=== PATIENT | male | born 1975 | race Caucasian/White ===

== ENCOUNTER 2018-03-12 06:59 | Inpatient (IN) | payer OTHER ==
[2018-03-12] MEDS ORDERED: Nitroglycerin 2% Ointment 1 INCH/1 GM Packet ONE (07:15)
[2018-03-12 07:18] LABS: #Eosinphils 0.1 thou/uL (0.0-0.7); #Lymphocytes 1.8 thou/uL (1.20-3.40); #Monocytes 0.4 thou/uL (0.11-0.59); #Neutrophils 2.7 thou/uL (1.40-6.50); %Basophils 0.6 % (0.0-1.0); %Lymphocytes 36.3 % (21.0-51.0); %Monocytes 7.3 % (0.0-10.0); %Neutrophils 53.9 % (42.0-75.0); Hemoglobin 16.4 g/dL (14.0-18.0); Mean Corpuscular HGB CONC 34.6 g/dL (32.0-36.0); Mean Corpuscular Hemoglobin 31.3 pg (27.0-31.0); Mean Corpuscular Volume 90.5 fL (78.0-98.0); Mean Platelet Volume 6.8 fL (7.4-10.4); Platelet Count 253 thou/uL (130-400); RBC Distribution Width 12.3 % (11.5-14.5); Red Blood Cell (RBC) Count 5.26 mill/uL (4.70-6.10)
[2018-03-12 07:34] LABS: INR-International Normal Ratio 0.9; Prothrombin Time 12.6 SEC (12.0-14.7)
[2018-03-12] MEDS ORDERED: fentaNYL Citrate/PF 2,000 MCG in Sodium Chloride 0.9% 60 ML IV SCH (07:35)
[2018-03-12] MEDS ORDERED: Midazolam HCl 2 mg/2 ml Vial ONE ×2 (07:35→07:43)
[2018-03-12 07:36] LABS: ALT (SGPT) 30 U/L (8-55); AST (SGOT) 24 U/L (5-34); Albumin 4.5 g/dL (3.5-5.0); Alkaline Phosphatase 85 U/L (40-150); Anion Gap 15 mmol/L (10-20); BUN (Urea Nitrogen) 14 mg/dL (8.9-20.6); Bilirubin, Total 0.7 mg/dL (0.2-1.2); CK (CPK) 95 U/L (30-200); Calc. Creatinine Clearance 0 mL/min (70-130); Calcium 9.3 mg/dL (7.8-10.44); Carbon Dioxide 21 mmol/L (22-29); Chloride 108 mmol/L (98-107); Estimated GFR-MDRD 75; Globulin 3.4 g/dL (2.4-3.5); Glucose 111 mg/dL (70-105); Lipase 17 U/L (8-78); Protein, Total 7.9 g/dL (6.0-8.3); Sodium 140 mmol/L (136-145)
[2018-03-12 07:39] LABS: CKMB 0.7 ng/mL (0-6.6); Troponin I Less than 0.010 ng/mL (< 0.028)
[2018-03-12] MEDS ORDERED: Fentanyl 100 MCG/2 ML VIAL ONE (07:47)
--- NOTE | 2018-03-12 07:58 | RAD ---
SUPINE AP CHEST: Indication: Assess intubation. Shortness of breath. Comparison: 03-12-18 performed at 6:11 a.m. FINDINGS/IMPRESSION: ET tube has been placed. The tip is just above the charles. There are now bilateral infiltrates which are seen in both mid and upper lungs. These have occurred s kim the exam performed at 6:11 a.m. suggesting the development of pulmonary edema since that study. POS: [facility]
[2018-03-12 08:09] LABS: Cardiac Risk 4.4 (Less than 4.5)
[2018-03-12] MEDS ORDERED: Heparin 10,000 UNITS/1 ML VIAL ONE (08:15)
[2018-03-12] MEDS ORDERED: Aggrastat 12.5 MG/250 ML 250 ML ONE (08:23)
--- NOTE | 2018-03-12 08:33 | RAD ---
CHEST 1 VIEW: INDICATION: Chest pain. COMPARISON: None. FINDINGS: Lungs are clear. Cardiomediastinal silhouette is within normal limits. No acute osseous abnormality is noted. IMPRESSION: No acute cardiopulmonary abnormality. POS: [facility]
[2018-03-12] MEDS ORDERED: Nitroglycerin 0.4 MG TAB (25 Tab Bottle) SL PRN (08:48)
[2018-03-12] MEDS ORDERED: Heparin 10,000 UNITS/ 10 ML VIAL ONE (09:00)
[2018-03-12] MEDS ORDERED: Sodium Chloride 0.9% 1,000 ML IV SCH (09:00)
[2018-03-12] MEDS ORDERED: Aggrastat 12.5 MG/250 ML 250 ML IVPB SCH (09:00)
[2018-03-12] MEDS ORDERED: Amiodarone In Dextrose 200 ML IVPB SCH (09:15)
[2018-03-12] MEDS ORDERED: Amiodarone HCl 450 MG, Admixture Fee 1 EACH in Dextrose 5% in Water 250 ML IVPB SCH (09:15)
[2018-03-12 09:42] VITALS: BMI 23.8
[2018-03-12 09:47] LABS: Actual Bicarbonate (HCO3a) 17.1 mEq/L (22-28); Base Excess (BEa) -6.1 mEq/L (-2.0 to +3.0); CO2 Tension 28.3 mmHg (35.0-45.0); Calcium, Ionized 1.03 mmol/L (1.12-1.30); Hemoglobin (Hb) 14.7 g/dL (14.0-18.0); O2 Tension (PaO2) 160.5 mmHg (80.0-100.0)
[2018-03-12] MEDS ORDERED: Propofol 1,000 MG/100 ML VIAL IV ONE (09:57)
[2018-03-12 10:13] LABS: ALV-art Gradient 167.755 (0-20); Puncture Site ALINE
[2018-03-12] MEDS ORDERED: Lorazepam 2 MG/ML VIAL ONE (10:29)
[2018-03-12] MEDS ORDERED: Iopamidol 370 76% 100 ML VIAL ONE (10:32)
[2018-03-12] MEDS ORDERED: Iopamidol 370 76% 50 ML VIAL FS ONE (10:32)
[2018-03-12] MEDS: TICAGRELOR 90 MG TABLET PO SCH ×2 (10:58→20:59)
--- NOTE | 2018-03-12 11:23 | PDOC.PULCN ---
Pulmonology Consult: HPI - Date of Consult Date: 03/12/18 Time: 11:00 - Consult Details Reason for Consult: STEMI, s/p PCI w/ ADIA, on ventilator Requesting Physician: Jeremi - History of Present Illness HPI: CHRISTOPHER KOWALSKI is a 42 year-old M w pmh of tobacco abuse and elevated BP w/O dx of HTN who presented by EMS for persistent CP. 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 An EKG was performed at that time and was reported to show ST depression with mild ST elevation in reciprocal leads. At this time he was taken via EMS to the ER and serial EKGs were performed en route. In the ER pt was given nitro paste and EKG was performed that showed STEMI. Shortly after arrival to the ER the pt developed a ventricular arrythmia ( v-fib arrest--> torsades) and was cardioverted 3 times and CPR was initiated for <1 min and pt was intubated. Ultimately, pt was taken to clinical lab assistant and found to have 60% occlusion of his LAD for which 1 ADIA was placed with good flow noted post intervention. He was transferred to ICU on ventilator. Pulmonology Consult: ROS - Review of Systems ROS unobtainable: due to endotracheal tube Cardiovascular: chest pain (per records) Pulmonology Consult: PMH Source: family Past Medical History: Elevated BP w/o dx of HTN - Family History Pertinent family history: Maternal grandfather [place] @ 42 and cardiac in early 50s - Social History Smoking Status: Other (2 cans smokeless tobacco daily) Alcohol Use: daily Drug Use History: none Living Situation: Pulmonology Consult: Meds - Medications MAR Reviewed: Yes Medications: Current Medications Aspirin (Aspirin Chewable) 81 mg PO DAILY [facility] Last Admin: 03/12/18 10:57 Dose: Not Given Atorvastatin Calcium (Lipitor) 20 mg PO HS [facility] Fentanyl Citrate 2,000 mcg/ (Sodium Chloride) 100 mls @ 0 mls/hr IV INF [facility]; Protocol Stop: 04/11/18 07:35 Thiamine HCl 100 mg/ Sodium (Chloride) 51 mls @ 100 mls/hr IVPB Q24HR [facility] Stop: 03/14/18 23:59 Last Admin: 03/12/18 10:56 Dose: 51 mls Tirofiban/Sodium Chloride (Aggrastat 12.5 Mg/250 Ml) 250 mls @ 0 mls/hr IVPB INF [facility]; Protocol Stop: 03/13/18 09:00 Sodium Chloride (Normal Saline 0.9%) 1,000 mls @ 125 mls/hr IV .Q8H [facility] Stop: 03/12/18 15:00 Last Admin: 03/12/18 10:57 Dose: 1,000 mls Amiodarone HCl 450 mg/Miscellaneous Medication 1 each/ Dextrose/Water 259 mls @ 0 mls/hr IVPB INF [facility]; Protocol Morphine Sulfate (Morphine) 2 mg SLOW IVP Q4H PRN PRN Reason: Moderate Pain (4-6) Nitroglycerin (Nitrostat) 0.4 mg SL Q5MIN PRN PRN Reason: Chest Pain Sodium Chloride (Flush - Normal Saline) 10 ml IVF Q12HR [facility] Last Admin: 03/12/18 10:57 Dose: 10 ml Sodium Chloride (Flush - Normal Saline) 10 ml IVF PRN PRN PRN Reason: Saline Flush Ticagrelor (Brilinta) 90 mg PO BID [facility] Last Admin: 03/12/18 10:58 Dose: Not Given - Allergies Allergies/Adverse Reactions: Allergies Allergy/AdvReac Type Severity Reaction Status Date / Time acetaminophen [From Vicodin] Allergy Hives Verified 03/12/18 11:25 hydrocodone [From Vicodin] Allergy Hives Verified 03/12/18 11:25 Penicillins Allergy Hives Verified 03/12/18 11:25 Pulmonology Consult: PE - Physical Exam Deviation from normal: Intubated, mildly agitated able to follow commands HEENT: moist MMs, sclera anicteric Deviation from normal: ET tube in place with BRB suctioned from source Neck: no nodes, no JVD Cardiovascular: RRR, no significant murmur, no rub Respiratory: rhonchi. negative: accessory muscle use, chest wall tenderness, decreased breath sounds, rales, respiratory distress, stridor, wheezes Focused Respiratory Location: rhonchi: Right, Left, Upper, Lower Gastrointestinal: soft, non-tender, no distention, positive bowel sounds Musculoskeletal: no edema, pulses present Neurological: non-focal, normal sensation, moves all 4 limbs Deviation from normal: agitated, seddation started during exam Skin: no rash, cap refill <2 seconds Pulmonology Consult: Results - Labs Result Diagrams: 03/12/18 07:10 03/12/18 07:10 - ABG Interpretation Attestation: I reviewed and interpreted this ABG. ABG Results: ABG pH 7.40 (7.35-7.45) 03/12/18 09:35 ABG pCO2 28.3 mmHg (35.0-45.0) L 03/12/18 09:35 ABG O2 Sat Calc/Amaya 99.3 % (94.0-98.0) H 03/12/18 09:35 ABG Base Excess -6.1 mEq/L (-2.0 to +3.0) L 03/12/18 09:35 Interpretation: normal - EKG Data Rate: normal - Radiology Interpretation Chest x-ray Status: image reviewed by me, report reviewed by me Pulmonology Consult: A/P - Problem (1) Cardiac arrest with ventricular fibrillation Current Visit: Yes Code(s): I46.9 - CARDIAC ARREST, CAUSE UNSPECIFIED; I49.01 - VENTRICULAR FIBRILLATION Status: Acute (2) STEMI (ST elevation myocardial infarction) Current Visit: Yes Status: Acute (3) Tobacco abuse Current Visit: Yes Code(s): Z72.0 - TOBACCO USE Status: Acute (4) Alcohol abuse Current Visit: Yes Code(s): F10.10 - ALCOHOL ABUSE, UNCOMPLICATED Status: Acute - Time Time: 50% of the time was spent in coordination of care (as documented) at patient's floor/unit and/or counseling patient. 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
--- NOTE | 2018-03-12 13:07 | HP ---
HISTORY: Stephen Ortiz is a 42-year-old white male who denies any previous chest discomfort. He was awake at 5:00 a.m. this morning and he started to have crushing central chest pressure without radiation. This was accompanied by diaphoresis when paramedics arrived, but no shortness of breath, nausea or vomiting. EKG initially showed ST segment elevation in lead 1 and 2 as well as V2 through V4 with reciprocal changes in other leads. He was given aspirin 324 mg and the pain resolved. He was brought to the emergency room. At the present time, he is pain free. PAST MEDICAL HISTORY: Denied any history of hypertension, diabetes, hypercholesterolemia, although in 10/2016 he had a cholesterol 200, triglycerides 66, HDL 55, LDL 132. One year prior to that his LDL was 84. MEDICATIONS: None. ALLERGIES: PENICILLIN. OPERATIONS: None. SOCIAL HISTORY: He does not smoke, but he does dip. He drinks a 6 pack a day at times, although he is very evasive about that. 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 FAMILY HISTORY: Negative for coronary artery disease, myocardial infarction. REVIEW OF SYSTEMS: Twelve point review of systems otherwise unremarkable. PHYSICAL EXAMINATION: VITAL SIGNS: Blood pressure 132/80, pulse of 90. HEENT: PERRL. NECK: Supple. CHEST: Clear. CARDIAC: S1 and S2 are normal, without any S3, S4 or murmurs. Carotid upstrokes normal, without bruits. ABDOMEN: Normal bowel sounds, without tenderness, organomegaly or masses. EXTREMITIES: Revealed no clubbing, cyanosis or edema. NEUROLOGIC: Grossly intact. SKIN: Warm and dry. LABORATORY: At the present time EKG was normal. The only blood work that has returned is a CBC which is unremarkable. Chest x-ray is unremarkable. IMPRESSION: 1. Acute coronary syndrome, aborted ST-segment elevation myocardial infarction. At the present time, he is pain free with normal EKG. 2. Snuff user. 3. ETOH use. PLAN: The situation was discussed with the patient. It was recommended he undergo catheterization. The risks were discussed including , myocardial infarction, dye reaction, vascular injury, CVA, transfusion, limb loss, renal damage, etc. Risk of intervention with PTCA and stent were discussed including , myocardial infarction, emergent CABG, restenosis, stent thrombosis, vessel perforation, etc. He had no history of gastrointestinal bleeding, CVA, or upcoming surgeries. Overall, it was recommended drug-eluting stent be placed if needed. During this dictation, the patient arrested, having gone into what was described as torsades, although I did not have any rhythm strips to evaluate. He was then shocked back to sinus rhythm. Amiodarone drip was given, after a bolus of 300 mg, then he will be taken to the concrete plant laborer. FELICITY
[2018-03-12 13:38] LABS: CKMB 2.2 ng/mL (0-6.6); Troponin I 0.261 ng/mL (< 0.028)
--- NOTE | 2018-03-12 18:11 | CCL ---
CARDIAC CATHETERIZATION REPORT: Date: 03/12/18 PROCEDURE: Left heart catheterization, selective coronary arteriography, stent placement in proximal LAD, and left ventriculography. INDICATION: Ventricular fibrillation x3 in the emergency room and aborted anterolateral STEMI. PROCEDURE IN DETAIL: The patient was brought to cardiac dairy laboratory technician, intubated, with IV fentanyl and amiodarone infusing. He had been intubated in the ER. The patient was prepped and draped. 1% lidocaine was infiltrated into the right femoral area. A 6- Angolan sheath was inserted. ACT was obtained and it was subtherapeutic, and an additional 5000 units of heparin was given. Later in the case, the ACT was over 300. A 6-Angolan Luke right 4 was inserted for right coronary arteriography. This was removed and a 6-Angolan Luke left 4 guide catheter was inserted for left coronary arteriography. Aggrastat bolus and drip were started. Brilinta could not be given through the NG because it was occluded and this will be dealt with as described later. A floppy choice wire was advanced into the distal LAD. Synergy 3.5 x 32 mm stent was positioned and deployed with excellent result. Final injections were obtained and the left 4 guide was removed. A 6-Angolan Luke angulated pigtail was inserted pressure obtained. Left ventriculogram was performed using 30 mL of contrast in a TOURE 30 degree projection. Pressure obtained and the pigtail was removed. Attention was then turned to the NG under fluoroscopy. This seemed to be coiled in the pharynx. This was pulled back and redirected several times and ultimately was inserted into the stomach. Brilinta 180 mg was then given. Sheath sutured in place and patient was transferred to the CCU in guarded condition. RESULTS: PRESSURES: Aorta 111/77, mean of 95 Left Ventricle 113/13 CORONARY ARTERIOGRAPHY: 1. The left main was normal. 2. The LAD had a 60-70% long proximal stenosis with GRISELDA 1-2 flow. 3. The circumflex had a 20% stenosis in the first obtuse marginal. 4. The right coronary was normal and very small. INTERVENTION RESULTS: The initial lesion was 60-70%. Decision was made to intervene in this area due to his changes consistent with anterolateral STEMI on EKG as well as ventricular fibrillation x3 in the emergency room. Initial lesion was 60-70%. Final lesion was 0%. LEFT VENTRICULOGRAM: There was moderate mid and distal anterior hypokinesis with ejection fraction of 40-45%. IMPRESSION: 1. One vessel coronary artery disease (LAD). 2. Successful drug-eluting stent placement in the proximal LAD. 3. Mild left ventricular dysfunction. MTDD
[2018-03-12] MEDS: Atorvastatin Calcium 40 MG TAB PO SCH (20:58)
[2018-03-12] MEDS ORDERED: Atorvastatin Calcium 20 MG TAB PO SCH (21:00)
[2018-03-12] MEDS: Morphine 2 MG/ML SYRINGE SLOW IVP PRN (21:05)
[2018-03-13] MEDS: Morphine 2 MG/ML SYRINGE SLOW IVP PRN ×3 (00:39→20:53)
[2018-03-13 03:53] LABS: %Basophils 0.1 % (0.0-1.0); %Eosinophils 0.7 % (0.0-10.0); %Lymphocytes 10.2 % (21.0-51.0); %Monocytes 6.1 % (0.0-10.0); Hemoglobin 11.9 g/dL (14.0-18.0); Mean Corpuscular Hemoglobin 31.3 pg (27.0-31.0); Mean Platelet Volume 6.8 fL (7.4-10.4); Platelet Count 231 thou/uL (130-400); RBC Distribution Width 12.3 % (11.5-14.5); Red Blood Cell (RBC) Count 3.81 mill/uL (4.70-6.10); White Blood Cell (WBC) Count 9.7 thou/uL (4.8-10.8)
[2018-03-13 03:54] LABS: #Eosinphils 0.1 thou/uL (0.0-0.7); #Monocytes 0.6 thou/uL (0.11-0.59)
[2018-03-13 04:17] LABS: ALT (SGPT) 25 U/L (8-55); AST (SGOT) 49 U/L (5-34); Albumin 3.6 g/dL (3.5-5.0); Alkaline Phosphatase 60 U/L (40-150); Anion Gap 9 mmol/L (10-20); BUN (Urea Nitrogen) 10 mg/dL (8.9-20.6); Bilirubin, Total 1.3 mg/dL (0.2-1.2); Calc. Creatinine Clearance 94 mL/min (70-130); Calcium 7.9 mg/dL (7.8-10.44); Carbon Dioxide 22 mmol/L (22-29); Chloride 109 mmol/L (98-107); Estimated GFR-MDRD Greater than 90; Globulin 2.4 g/dL (2.4-3.5); Glucose 120 mg/dL (70-105); Potassium 3.7 mmol/L (3.5-5.1); Sodium 136 mmol/L (136-145)
[2018-03-13] MEDS: TICAGRELOR 90 MG TABLET PO SCH ×2 (08:02→20:10)
[2018-03-13 08:10] LABS: CKMB 1.8 ng/mL (0-6.6); Troponin I 0.092 ng/mL (< 0.028)
--- NOTE | 2018-03-13 09:09 | RAD ---
PORTABLE AP CHEST: Date: 03/13/18 HISTORY: Extubation. Follow-up evaluation. COMPARISON: 03/12/18. FINDINGS: The endotracheal tube has been removed. There are interstitial and alveolar opacities seen within the suprahilar/perihilar regions bilaterally, in similar distribution to the prior exam, which may be re lated to pulmonary edema. Calcified granuloma is again present at the right lung base. No pleural eff usion is seen. The cardiac silhouette is within normal limits. There has been no other interval dickinson e. IMPRESSION: 1. Persistent bilateral interstitial and alveolar opacities within the perihilar/suprahilar location s, in a similar distribution to the prior study, which may be related to pulmonary edema, with mild i mprovement in aeration on the left. 2. Interval removal of the endotracheal tube. POS: [facility]
--- NOTE | 2018-03-13 13:45 | PRG ---
DATE OF SERVICE: 03/13/2018 SERVICE: Pulmonary Medicine. INTERVAL HISTORY: The patient is doing outstanding from a Respiratory standpoint. He denies any current chest pain, nausea, vomiting, fevers or chills outside of the rib discomfort he has from his chest compressions. He is tolerating p.o. There has been no interval change in his condition. He did not have any events overnight. Telemetry was unremarkable. PHYSICAL EXAMINATION: VITAL SIGNS: Afebrile, pulse 95, blood pressure 122/83, respirations 19, saturation 100% on room air. GENERAL: The patient is awake, alert, no apparent distress. LUNGS: Decent air entry. Crackles are present. No prolonged expiratory phase or wheezing is appreciated. HEART: Normal rate, regular. ABDOMEN: Soft, nontender, nondistended. Bowel sounds are positive. MUSCULOSKELETAL: No cyanosis or clubbing. There is no pitting edema in the bilateral lower extremities. NEUROLOGIC: Grossly nonfocal. LABORATORY DATA: WBC 9.7, hemoglobin 11.9, platelets 231,000. Basic metabolic profile and liver function studies are essentially unremarkable except for marginally elevated AST. Troponin is down trending to 0.92. IMAGING: Echocardiogram demonstrates an ejection fraction of 55-60%. There is mild mitral regurgitation present. Chest x-ray demonstrates bilateral interstitial and alveolar opacifications seen in perihilar/suprahilar region. Interval removal of endotracheal tube. ASSESSMENT: 1. Acute hypoxic respiratory failure, resolved. 2. Ventricular tachycardia arrest, status post 1 minute of CPR with return of good cardiac activity and good neurologic function. 3. Acute myocardial infarction, status post ADIA to the LAD. DISCUSSION AND PLAN: The patient is doing absolutely fantastic from Respiratory and Cardiovascular standpoint. It looks like there is no severe injury to the heart at this time. The troponin really did not increase dramatically. Furthermore, his left ventricular ejection fraction seems to be okay. As such, I will transition him out of the ICU to the telemetry unit. When he arrives on the floor, he will have no further requirements for Pulmonary or Critical Care opinion, and I will sign off. Arana catheter to be removed today. FELICITY
[2018-03-13] MEDS: Atorvastatin Calcium 40 MG TAB PO SCH (20:10)
[2018-03-14] MEDS: Morphine 2 MG/ML SYRINGE SLOW IVP PRN ×3 (01:15→20:39)
[2018-03-14] MEDS: TICAGRELOR 90 MG TABLET PO SCH ×2 (09:21→20:39)
[2018-03-14] MEDS: Atorvastatin Calcium 40 MG TAB PO SCH (20:39)
[2018-03-15] MEDS: Morphine 2 MG/ML SYRINGE SLOW IVP PRN (02:30)
[2018-03-15 07:45] VITALS: TEMP 98.9
[2018-03-15] MEDS: TICAGRELOR 90 MG TABLET PO SCH (08:37)
--- NOTE | 2018-03-15 12:52 | DIS ---
DISCHARGE DIAGNOSES: 1. Aborted anterolateral ST-segment elevation myocardial infarction with spontaneous resolution of S T segment elevation. 2. Hle-VB-rnufzgh elevation myocardial infarction with peak troponin of 0.261. 3. Ventricular fibrillation x3 in the emergency room. 4. Placement of drug-eluting stent in the proximal left anterior descending. 5. Hypercholesterolemia with LDL of 126. 6. Snuff user. 5. ETOH use. DISCHARGE MEDICATIONS: Aspirin 81 mg daily, Brilinta 90 mg b.i.d. for at least 1 year, atorvastatin 40 mg daily, metoprolol 25 ER daily, nitroglycerin 0.5 mg sublingually p.r.n. DISCHARGE DISPOSITION: The patient will return to light duty on 03/26/2018. He will return for foll owup on 04/09/2018 to reassess his status and hopefully return him to full duty. He also has a follo w up on 05/03/2018 with a lipid profile being performed. HOSPITAL COURSE: Mr. Ortiz denied any previous chest discomfort. On the day of admission, he was already awake at 5:00 a.m., began to have crushing substernal chest pressure. Paramedics were gigi james. He was given aspirin and by the time he arrived in the emergency room, the ST segment elevation i n 1, L, V2 through V4 had resolved and his EKG was normal and his pain had resolved. We discussed th at he needed to undergo cardiac catheterization. After that he then had 3 episodes of ventricular fi brillation in the emergency room, all successfully defibrillated. He was taken to the cardiac cath l ab after being intubated in the emergency room. This revealed a 60-70% proximal LAD lesion and 20% o btuse marginal lesion. The right coronary was small and normal. With his previous EKG changes as we ll as ventricular fibrillation x3, it was felt that the proximal LAD lesion needed to be stented. Sy nergy 3.5 x 32 mm stent was then positioned and deployed with excellent result. Later during the day of admission, he was weaned from the ventilator and extubated. At the time of d ischarge he was walking 450 feet in the chowdary without symptoms. Cholesterol was 191, triglycerides 11 2, HDL 43, LDL 126. We discussed low cholesterol diet. He was started on atorvastatin 40 mg daily.
[2018-03-15 14:10] VITALS: BP 140/79
== END 2018-03-15 11:51 | disposition home or self-care (01) | DRG 246 ==
LOC: ERS 06:59 → CCU 08:25 → 2NO 03-13 14:47
PROVIDERS: ADMIT Internal Medicine Cardiovascular Disease; ATTEND Internal Medicine Cardiovascular Disease
PROC: 0BH17EZ Insertion of Endotracheal Airway into Trachea, Via Natural or Artificial Opening (ICD-10-PCS; principal; 2018-03-12)
PROC: 027034Z Dilation of Coronary Artery, One Artery with Drug-eluting Intraluminal Device, Percutaneous Approach (ICD-10-PCS; 2018-03-12)
PROC: 027034Z Dilation of Coronary Artery, One Artery with Drug-eluting Intraluminal Device, Percutaneous Approach (ICD-10-PCS; 2018-03-12)
PROC: 02C03ZZ Extirpation of Matter from Coronary Artery, One Artery, Percutaneous Approach (ICD-10-PCS; 2018-03-12)
PROC: 5A12012 Performance of Cardiac Output, Single, Manual (ICD-10-PCS; 2018-03-12)
PROC: 5A1935Z Respiratory Ventilation, Less than 24 Consecutive Hours (ICD-10-PCS; 2018-03-12)
PROC: 4A023N7 Measurement of Cardiac Sampling and Pressure, Left Heart, Percutaneous Approach (ICD-10-PCS; 2018-03-12)
PROC: B2111ZZ Fluoroscopy of Multiple Coronary Arteries using Low Osmolar Contrast (ICD-10-PCS; 2018-03-12)
PROC: B2151ZZ Fluoroscopy of Left Heart using Low Osmolar Contrast (ICD-10-PCS; 2018-03-12)
PROC: 3E03317 Introduction of Other Thrombolytic into Peripheral Vein, Percutaneous Approach (ICD-10-PCS; 2018-03-12)
PROC: 3E033PZ Introduction of Platelet Inhibitor into Peripheral Vein, Percutaneous Approach (ICD-10-PCS; 2018-03-12)
DX: I21.09 ST elevation (STEMI) myocardial infarction involving other coronary artery of anterior wall (principal); J96.01 Acute respiratory failure with hypoxia; I46.2 Cardiac arrest due to underlying cardiac condition; I49.8 Other specified cardiac arrhythmias; Z88.0 Allergy status to penicillin; Z72.0 Tobacco use; F10.20 Alcohol dependence, uncomplicated; E78.00 Pure hypercholesterolemia, unspecified; Z79.82 Long term (current) use of aspirin; I25.119 Atherosclerotic heart disease of native coronary artery with unspecified angina pectoris; Z88.8 Allergy status to other drugs, medicaments and biological substances
CPT/HCPCS: 31500; 36415; 71045; 80053; 80061; 82550; 82553; 82805; 83690; 84484; 85025; 85347; 85610; 85730; 92941; 92950; 92977; 93005; 93010; 93306; 93458; 93798; 94002; 96361; 96374; 96375; C1769; C1874; C1887; C9606; J0282; J1644; J2060; J2250; J2270; J2704; J3010; J3246; J3411; J7050; J7070

== ENCOUNTER 2021-06-23 14:37 | Observation (INO) | payer BC, OTHER ==
[~2021-06-23 14:37] MED LIST: Iopamidol-370 76% 500 ML 1 ML ONE
[2021-06-23] MEDS ORDERED: Aspirin Chewable 81 MG TAB ONE (14:58)
[2021-06-23 15:18] LABS: #Basophils 0.1 thou/uL (0.0-0.2); #Eosinphils 0.2 thou/uL (0.0-0.7); #Lymphocytes 1.1 thou/uL (1.20-3.40); #Monocytes 0.3 thou/uL (0.11-0.59); #Neutrophils 3.3 thou/uL (1.40-6.50); %Eosinophils 3.2 % (0.0-10.0); %Lymphocytes 21.7 % (21.0-51.0); %Monocytes 6.3 % (0.0-10.0); %Neutrophils 66.8 % (42.0-75.0); Hemoglobin 16.1 g/dL (14.0-18.0); Mean Corpuscular HGB CONC 34.9 g/dL (32.0-36.0); Mean Corpuscular Hemoglobin 32.3 pg (27.0-31.0); Mean Corpuscular Volume 92.6 fL (78.0-98.0); Mean Platelet Volume 6.7 fL (7.4-10.4); Platelet Count 205 thou/uL (130-400); RBC Distribution Width 12.9 % (11.5-14.5); Red Blood Cell (RBC) Count 4.99 mill/uL (4.70-6.10); White Blood Cell (WBC) Count 4.9 thou/uL (4.8-10.8)
[2021-06-23 15:42] LABS: ALT (SGPT) 46 U/L (8-55); AST (SGOT) 33 U/L (5-34); Albumin 4.1 g/dL (3.5-5.0); Alkaline Phosphatase 110 U/L (40-110); Anion Gap 16 mmol/L (10-20); BUN (Urea Nitrogen) 10 mg/dL (8.9-20.6); Bilirubin, Total 0.8 mg/dL (0.2-1.2); Calc. Creatinine Clearance 0 mL/min (70-130); Calcium 8.4 mg/dL (7.8-10.44); Carbon Dioxide 19 mmol/L (22-29); Chloride 105 mmol/L (98-107); Globulin 2.8 g/dL (2.4-3.5); Glucose 125 mg/dL (70-105); Potassium 3.5 mmol/L (3.5-5.1); Protein, Total 6.9 g/dL (6.0-8.3); Sodium 136 mmol/L (136-145)
[2021-06-23] MEDS ORDERED: Lorazepam 2 MG/ML VIAL ONE (16:12)
[2021-06-23 16:37] LABS: Bilirubin Negative (Negative); Blood, Urine Negative (Negative); Clarity Clear (Clear); Glucose, Urine (Dipstick) Normal (Negative); Ketone, Urine Negative (Negative); Leukocyte Negative Leu/uL (Negative); Nitrite Negative (Negative); Protein, Urine (Dipstick) Negative (Neg-Trace); Specific Gravity, Urine 1.041 (1.002-1.036); Urobilinogen Normal mg/dL (Less than 2); pH, Urine 7.5 (5.0-9.0)
[2021-06-23 16:46] LABS: Amphetamine Not Detected (NotDetected); Barbiturates Screen Not Detected (NotDetected); Benzodiazepine Screen Not Detected (NotDetected); Cocaine Metabolite Screen Not Detected (NotDetected); Methadone Not Detected (NotDetected); Methamphetamine Not Detected (NotDetected); Opiate Screen Not Detected (NotDetected); Oxycodone Screen Not Detected (NotDetected); Phencyclidine (PCP) Not Detected (NotDetected); THC/Cannabinoid Screen Detected (NotDetected); Tricyclic Screen Not Detected (NotDetected)
[2021-06-23 18:49] LABS: Lactic Acid 1.3 mmol/L (0.5-2.2)
[2021-06-23 18:59] LABS: Troponin I Less than 0.010 ng/mL (< 0.028)
[2021-06-23 22:01] LABS: Troponin I Less than 0.010 ng/mL (< 0.028)
[2021-06-23] MEDS ORDERED: Ondansetron ODT 4 MG TAB PO PRN (23:27)
[2021-06-23] MEDS ORDERED: Nitroglycerin 0.4 MG TAB (25 Tab Bottle) SL PRN (23:27)
[2021-06-23] MEDS ORDERED: Ondansetron PF 4 MG/2 ML Vial IVP PRN (23:27)
[2021-06-23 23:45] LABS: SARS-CoV-2 PCR by NAA DETECTED (NotDetected)
[2021-06-23] MEDS ORDERED: Sodium Chloride 0.9% 1,000 ML IV SCH (23:45)
[2021-06-23 23:53] VITALS: BMI 25.1
[2021-06-24] MEDS ORDERED: Morphine 4 MG/ML VIAL SLOW IVP SCH (00:15)
[2021-06-24] MEDS ORDERED: Enoxaparin Sodium 40 MG/0.4 ML SYRINGE SC SCH (02:30)
[2021-06-24 05:37] LABS: #Eosinphils 0.2 thou/uL (0.0-0.7); #Lymphocytes 1.5 thou/uL (1.20-3.40); #Monocytes 0.3 thou/uL (0.11-0.59); #Neutrophils 2.7 thou/uL (1.40-6.50); %Basophils 0.4 % (0.0-1.0); %Eosinophils 4.1 % (0.0-10.0); %Lymphocytes 32.5 % (21.0-51.0); %Monocytes 6.8 % (0.0-10.0); %Neutrophils 56.3 % (42.0-75.0); Hemoglobin 13.9 g/dL (14.0-18.0); Mean Corpuscular HGB CONC 34.1 g/dL (32.0-36.0); Mean Corpuscular Volume 93.9 fL (78.0-98.0); Mean Platelet Volume 6.9 fL (7.4-10.4); Platelet Count 169 thou/uL (130-400); RBC Distribution Width 13.2 % (11.5-14.5); Red Blood Cell (RBC) Count 4.33 mill/uL (4.70-6.10); White Blood Cell (WBC) Count 4.7 thou/uL (4.8-10.8)
[2021-06-24 06:01] LABS: Anion Gap 10 mmol/L (10-20); BUN (Urea Nitrogen) 8 mg/dL (8.9-20.6); Calc. Creatinine Clearance 109 mL/min (70-130); Calcium 7.9 mg/dL (7.8-10.44); Carbon Dioxide 23 mmol/L (22-29); Chloride 112 mmol/L (98-107); Glucose 101 mg/dL (70-105); Potassium 3.7 mmol/L (3.5-5.1); Sodium 141 mmol/L (136-145)
[2021-06-24 08:08] VITALS: TEMP 97.8
[2021-06-24] MEDS ORDERED: Aspirin Chewable 81 MG TAB PO SCH (09:00)
[2021-06-24 12:37] VITALS: BP 123/77
[2021-06-26] MEDS ORDERED: FLU VACC QS2021-22(6MOS UP)/PF 60 MCG/0.5 ML SYRINGE IM ONE (09:00)
== END 2021-06-24 12:38 | disposition home or self-care (01) ==
LOC: ERS 14:37 → ERHOLD 16:50 → 2NO 22:58
PROVIDERS: ADMIT Family Medicine; ATTEND Hospitalist
DX: R07.89 Other chest pain (principal); U07.1 COVID-19; I25.10 Atherosclerotic heart disease of native coronary artery without angina pectoris; I10 Essential (primary) hypertension; E78.5 Hyperlipidemia, unspecified; I25.2 Old myocardial infarction; Z79.82 Long term (current) use of aspirin; Z79.899 Other long term (current) drug therapy; Z88.0 Allergy status to penicillin; Z88.5 Allergy status to narcotic agent; Z88.6 Allergy status to analgesic agent; Z95.1 Presence of aortocoronary bypass graft; Z95.5 Presence of coronary angioplasty implant and graft; E78.00 Pure hypercholesterolemia, unspecified
CPT/HCPCS: 36415; 71045; 71275; 80048; 80053; 80061; 80306; 81003; 83605; 83690; 83880; 84443; 84484; 85025; 87040; 93005; 96372; 96374; G0378; J1650; J2060; J7050; Q9967; U0003; U0005

== ENCOUNTER 2023-01-03 09:40 | Observation (INO) | payer BC ==
[2023-01-03 11:08] LABS: #Eosinphils 0.1 thou/uL (0.0-0.7); #Monocytes 0.4 thou/uL (0.11-0.59); #Neutrophils 4.2 thou/uL (1.40-6.50); %Basophils 0.7 % (0.0-1.0); %Eosinophils 0.8 % (0.0-10.0); %Lymphocytes 21.2 % (21.0-51.0); %Neutrophils 70.8 % (42.0-75.0); Hemoglobin 16.8 g/dL (14.0-18.0); Mean Corpuscular HGB CONC 34.3 g/dL (32.0-36.0); Mean Corpuscular Hemoglobin 30.9 pg (27.0-31.0); Mean Corpuscular Volume 90.2 fl (78.0-98.0); Mean Platelet Volume 9.8 fL (7.4-10.4); Platelet Count 255 10x3/uL (130-400); RBC Distribution Width 12.5 % (11.5-14.5); Red Blood Cell (RBC) Count 5.43 mill/uL (4.70-6.10)
[2023-01-03 11:35] LABS: ALT (SGPT) 36 U/L (8-55); AST (SGOT) 26 U/L (5-34); Albumin 4.7 g/dL (3.5-5.0); Alkaline Phosphatase 100 U/L (40-110); Anion Gap 17 mmol/L (10-20); BUN (Urea Nitrogen) 10 mg/dL (8.9-20.6); Bilirubin, Total 0.9 mg/dL (0.2-1.2); Calc. Creatinine Clearance 0 mL/min (70-130); Calcium 10.2 mg/dL (7.8-10.44); Carbon Dioxide 23 mmol/L (22-29); Chloride 104 mmol/L (98-107); Estimated GFR 90; Globulin 2.9 g/dL (2.4-3.5); Glucose 107 mg/dL (70-105); Lipase 12 U/L (8-78); Potassium 3.7 mmol/L (3.5-5.1); Protein, Total 7.6 g/dL (6.0-8.3); Sodium 140 mmol/L (136-145)
[2023-01-03] MEDS ORDERED: Aspirin Chewable 81 MG TAB ONE (13:07)
[2023-01-03] MEDS ORDERED: Evolocumab [Repatha Syringe] 140 MG/ML Syringe SC SCH (13:45)
[2023-01-03 14:30] LABS: Troponin I Less than 0.010 ng/mL (< 0.028)
[2023-01-03 16:35] VITALS: BMI 23.3
[2023-01-03 16:56] LABS: Troponin I Less than 0.010 ng/mL (< 0.028)
[2023-01-03] MEDS ORDERED: GLUCOSAMINE PO SCH (21:00)
[2023-01-03] MEDS ORDERED: BOSWELLIA SERRA PO SCH (21:00)
[2023-01-03] MEDS ORDERED: D3 PO SCH (21:00)
[2023-01-04] MEDS ORDERED: Aspirin Chewable 81 MG TAB PO SCH (09:00)
[2023-01-04] MEDS ORDERED: Regadenoson 0.4 MG/5 ML SYRINGE ONE (09:19)
[2023-01-04 12:02] VITALS: BP 110/66; TEMP 98.8
== END 2023-01-04 14:20 | disposition home or self-care (01) ==
LOC: ERS 09:40 → ERHOLD 12:50 → 2SW 16:27
PROVIDERS: ADMIT Family Medicine; ATTEND Family Medicine
DX: R07.89 Other chest pain (principal); I25.2 Old myocardial infarction; I10 Essential (primary) hypertension; I25.10 Atherosclerotic heart disease of native coronary artery without angina pectoris; E78.5 Hyperlipidemia, unspecified; Z79.82 Long term (current) use of aspirin; Z79.899 Other long term (current) drug therapy; Z88.0 Allergy status to penicillin; Z88.6 Allergy status to analgesic agent; Z95.5 Presence of coronary angioplasty implant and graft
CPT/HCPCS: 36415; 71045; 78452; 80053; 83690; 84484; 85025; 93005; 93017; A9500; G0378; J2785